=== PATIENT | male | born 1955 | race Caucasian/White ===

== ENCOUNTER → 2019-06-24 | Day surgery (SDC) | payer MEDICARE, OTHER ==
[2019-06-20 10:19] VITALS: BMI 38.0
[~2019-06-24] MED LIST: ALPRAZolam 0.25 MG TAB PO PRN; ALPRAZolam 0.5 MG TAB PO PRN; ASPIRIN 325 MG TAB PO ONE; ATORVASTATIN 80 MG TAB PO ONE; IOPAMIDOL-370 125ML BTL INJ ONE; LIDOCAINE 1% INJ 10MG/ML (20 ML MDV) SQ ONE; MIDAZOLAM 2 MG/2 ML VIAL IV ONE; NITROGLYCERIN SL TABS 0.4 MG TAB SUBLINGUAL PRN; RX INFO: IV CONTRAST WAS GIVEN 1 EACH MISC MISCELLANE PRN; SODIUM CHLORIDE 0.9% 1,000 ML IV SCH; SODIUM CHLORIDE 0.9% 1,000 ML in EMPTY BAG 1 BAG IV ONE; VERAPAMIL SYRINGE (5 MG/10 ML) INTRAARTER ONE; fentaNYL (PF) 50 MCG/ML 2 ML AMP IV ONE
[2019-06-24 07:11] VITALS: TEMP 98.3
--- NOTE | 2019-06-24 08:08 | P.PCN ---
Date of Procedure: 06/24/19 Operative Findings: CARDIAC CATHETERIZATION PERFORMING PHYSICIAN: Eliot Jimenez MD, RPVI PROCEDURE PERFORMED: 1. Selective right and left coronary angiogram 2. Left heart catheterization INDICATION: This is a pleasant 64-year-old gentleman with history of coronary artery disease and prior stenting of the LAD, hypertension, dyslipidemia, was experiencing symptoms of chest discomfort. He underwent myocardial perfusion imaging stress is on that reveals reversible defect. Because of that a heart catheterization was advised. COMPLICATION: None APPROACH: Right radial artery LEVEL OF SEDATION: Moderate sedation length of 16 minutes PROCEDURE DESCRIPTION: After obtaining an informed consent, the patient was brought to cardiac mechanical shop laborer. Local anesthesia was performed using lidocaine subcutaneously. The right radial artery was cannulated using InfraSearch ue, the guidewire passed easily, following that we advanced a 5-Afghan sheath dilator assembly, the wire and dilator were removed and sheath was flushed. Following that, 2 mg of verapamil along with 5000 unit heparin were given. Selective right and left coronary angiogram using a 6-Afghan JR4 and JL 3.5 catheters. Following that we did left heart catheterization using 6-Afghan pigtail catheter. The procedure was completed there was no complication. SELECTIVE CORONARY ANGIOGRAM: The right coronary artery: Is a large caliber vessel and a dominant vessel. The proximal and mid RCA are angiographically normal. The distal RCA has intermediate lesion appeared to be in the range of 50%. Left main: Is angiographically normal. Bifurcates into LCx, ramus intermedius, and left anterior descending artery The left circumflex: Is a large caliber vessel and nondominant vessel. It does have mild disease only. In the midportion gives rises into a large OM branch which appeared to be angiographically normal. The ramus intermedius: Is a large caliber vessel. Its angiographically normal. The left anterior descending artery: The proximal LAD stented and the stent is patent. The mid LAD is normal and gives rises into a diagonal branch which seems to be normal. The LAD distally appears to be angiographically normal. HEMODYNAMICS: The LVEDP was 6 mmHg without significant gradient across aortic valve. CONCLUSION: 1. Intermediate disease involving the distal RCA appeared to be in the range of 50% 2. Patent stent in the proximal LAD POSTPROCEDURE MANAGEMENT: #1 continue the current medical regimen #2 aggressive cholesterol control #3 follow-up with the patient
[2019-06-24 09:04] VITALS: RESP 16
[2019-06-24 12:28] VITALS: BP 138/67; PULSE 58
== END ==
LOC: CATHCVL 06:32
PROVIDERS: ATTEND Internal Medicine Interventional Cardiology
DX: I25.110 Atherosclerotic heart disease of native coronary artery with unstable angina pectoris (principal); I10 Essential (primary) hypertension; Z72.0 Tobacco use; E78.5 Hyperlipidemia, unspecified; E78.00 Pure hypercholesterolemia, unspecified; Z95.5 Presence of coronary angioplasty implant and graft; I73.9 Peripheral vascular disease, unspecified; Z82.49 Family history of ischemic heart disease and other diseases of the circulatory system; Z79.82 Long term (current) use of aspirin; Z79.899 Other long term (current) drug therapy
CPT/HCPCS: 93458; C1769; C1894; J2250; J2001; J3010; J1644; Q9967

== ENCOUNTER → 2021-10-14 | Outpatient (CLI) | payer MEDICARE ==
--- NOTE | 2021-10-15 07:33 | CTL ---
EXAMINATION TYPE: CT Low Dose Lung DATE OF EXAM ORDERED: 10/14/2021 HISTORY: Long-term tobacco use. Lung cancer screening CT DLP: [address] CTDI: 2.4 mGy Automated exposure control for dose reduction was used. SCREENING VISIT: Baseline COMPARISON: CTA chest March 16, 2014 TECHNIQUE: Low dose computed tomography scan was performed through the chest at 1 mm thick sections a nd reconstructed images in multiple planes at 1 mm and [address] DIAGNOSTIC QUALITY: Satisfactory FINDINGS: LUNG NODULES: Present, detailed below: Stable 3 mm calcified subpleural right lower lobe nodule axial image 170. No significant greater than 5 mm noncalcified pulmonary nodules LUNGS: COPD: Severity: [id number] Fibrosis: Severity: Mild to moderate Lymph nodes: No greater than 1 cm Other findings: None RIGHT PLEURAL SPACE: Effusion: None Calcification: None Thickening: None Pneumothorax: None LEFT PLEURAL SPACE: Effusion: None Calcification: None Thickening: None Pneumothorax: None HEART: Heart Size: Normal Coronary Calcification: Moderate Pericardial Effusion: None OTHER FINDINGS: Upper abdomen: None Bony thorax: None Supraclavicular region: None Other: None IMPRESSION: No significant noncalcified parenchymal nodules or masses. [id number] emphysematous changes scattered mild/moderate parenchymal fibrosis. CT LUNG RAD AND CT CHEST RECOMMENDATION: Lung-Rad 2 Benign Appearance or Behavior: Continue annual sc reening with LDCT in 12 months. S Modifier (other clinically significant findings): None
== END | disposition home or self-care (01) ==
LOC: RADCTMAIN 18:34
PROVIDERS: ATTEND Family Medicine
DX: Z12.2 Encounter for screening for malignant neoplasm of respiratory organs (principal); Z87.891 Personal history of nicotine dependence
CPT/HCPCS: 71271

== ENCOUNTER 2022-07-13 06:30 | Day surgery (SDC) | payer MEDICARE ==
[2022-07-08 10:47] VITALS: BMI 38.9
[2022-07-13] MEDS ORDERED: SODIUM CHLORIDE 0.9% 1,000 ML IV ONE (07:02)
[2022-07-13] MEDS ORDERED: ASPIRIN 81 MG ONE (07:03)
[2022-07-13 07:04] LABS: Glucose,Whole Blood 150 mg/dL (70-110)
[2022-07-13] MEDS ORDERED: HEPARIN SODIUM 1,000 UN/ML (10ML VL) ONE (07:44)
[2022-07-13] MEDS ORDERED: fentaNYL (PF) 50 MCG/ML 2 ML AMP IVP ONE ×2 (07:45→08:54)
[2022-07-13] MEDS ORDERED: fentaNYL (PF) 50 MCG/ML 2 ML AMP ONE (07:45)
[2022-07-13] MEDS ORDERED: MIDAZOLAM 2 MG/2 ML VIAL IVP ONE ×2 (07:45→08:50)
[2022-07-13] MEDS ORDERED: LIDOCAINE 1% INJ 10MG/ML (30 ML VIAL-PF) SQ ONE (08:39)
[2022-07-13] MEDS ORDERED: HEPARIN SODIUM 1,000 UN/ML (10ML VL) IV ONE (08:44)
[2022-07-13] MEDS ORDERED: CLOPIDOGREL 75 MG TAB PO ONE (09:05)
[2022-07-13] MEDS ORDERED: IOPAMIDOL-300 50ML BTL INJ ONE (09:05)
[2022-07-13] MEDS ORDERED: SODIUM CHLORIDE 0.9% 1,000 ML IV SCH (09:15)
--- NOTE | 2022-07-13 09:51 | P.PCN ---
Date of Procedure: 07/13/22 Operative Findings: PERCUTANEOUS CLOSURE OF FENESTRATED INTERATRIAL SEPTUM PERFORMING PHYSICIAN: Eliot Jimenez MD, VI PROCEDURE PERFORMED: 1. Successful percutaneous closure of fenestrated atrial septal defect (ASD) using 25 mm Amplatzer Occluder with an excellent results and without any residual shunt. 2. Intracardiac echocardiogram imaging. 3. Right atrial angiogram. 4. Ultrasound-guided access of the right common femoral vein 2 INDICATION: This is a 67-year-old gentleman who was diagnosed recently with fenestrated interatrial septum and evidence of right side enlargement. He was brought today to undergo percutaneous closure of the atrial septal defect APPROACH: Right common femoral vein 2 COMPLICATION: None. LEVEL OF SEDATION: Moderate with sedation length of 26 minutes. PROCEDURE DESCRIPTION: After obtaining informed consent, the patient was brought to the cardiac labor expediter. The right common femoral vein was cannulated x2 using micropuncture technique under ultrasound guidance, the micropuncture wire passed easily, then I placed two 8-Wolof sheath in the right groin. Subsequently I cannulated the left common femoral vein with the same technique and I placed an 8-Wolof sheath there as well. At that point, anticoagulation was initiated using heparin and the patient was given a bolus of 8,000 units of heparin IV with continuous ACT monitoring throughout the procedure. After that, the intracardiac echocardiogram probe was advanced through one of the venous sheath all the way to the right atrium where we did interrogate the interatrial septum and identified the patent foramen ovale which was measured about 25 mm. Subsequently, I did cross the defect using 0.035 J-wire with the backup support of multipurpose catheter. The wire was advanced all the way to the left upper pulmonary vein and subsequently the catheter was advanced over the wire to the left upper pulmonary vein. The 0.035 J-wire was pulled out and then I advanced a marcus wire. Subsequently, the multipurpose catheter was withdrawn out and the wire was left in the left upper pulmonary vein. After that, I did prep the Amplatzer PFO occluder under saline. The device was loaded into the truck unloader, which was attached to the sheath. Subsequently, I did exchange my 8-Wolof sheath into the Shuttle sheath over a 0.035 marcus wire. The sheath was advanced all the way under fluoroscopy guidance to the left atrium. Subsequently, the dilator of the sheath was withdrawn out along with the wire. After that, I did load the Amplatzer occluder under continuous saline flush to the sheath. The device was advanced all the way through the sheath were I did where I did deploy initially the left atrial occluder and then I pulled back the sheath and the left atrial occluder all the way to the interatrial septum and then I deployed the right atrial occluder after that. Before I released the device, I did interrogate the septum using ice images on multiple views. After I realized that the device was stable enough and in good position the device was released. Interrogation using ice was also performed after the device was released. By the end I did right atrial angiogram. The procedure was completed without any complication. POSTPROCEDURE MANAGEMENT: 1. Dual anti-platelet therapy. 2. An echo in 24 hours, in 1 week, in 4 weeks, as well as in 6 months.
[2022-07-13] MEDS: BACLOFEN 10 MG TAB PO SCH ×3 (12:32→22:32)
[2022-07-13] MEDS: oxyCODONE-APAP 10-325MG 1 EACH TAB PO PRN ×2 (12:32→19:52)
[2022-07-13 13:30] LABS: Glucose,Whole Blood 155 mg/dL (70-110)
[2022-07-13] MEDS ORDERED: ATORVASTATIN 80 MG TAB PO SCH (21:00)
[2022-07-14] MEDS: oxyCODONE-APAP 10-325MG 1 EACH TAB PO PRN ×2 (02:12→09:06)
[2022-07-14 07:33] LABS: Basophils # (A) 0.1 k/uL (0-0.2); Basophils % (A) 1 %; Eosinophils # (A) 0.2 k/uL (0-0.7); Eosinophils % (A) 2 %; HCT 42.7 % (39.0-53.0); HGB 14.3 gm/dL (13.0-17.5); Lymphocytes # (A) 2.4 k/uL (1.0-4.8); Lymphocytes % (A) 31 %; MCH 32.4 pg (25.0-35.0); MCHC 33.5 g/dL (31.0-37.0); MCV 96.6 fL (80.0-100.0); Mean Platelet Volume 8.2; Monocytes # (A) 0.6 k/uL (0-1.0); Monocytes % (A) 8 %; Neutrophils # (A) 4.2 k/uL (1.3-7.7); Neutrophils % (A) 55 %; Platelet Count 222 k/uL (150-450); RBC 4.42 m/uL (4.30-5.90); RDW 12.9 % (11.5-15.5); WBC 7.6 k/uL (3.8-10.6)
--- NOTE | 2022-07-14 07:39 | XR ---
EXAMINATION TYPE: XR chest 2V DATE OF EXAM: 07/14/2022 COMPARISON: 03/16/2014 INDICATION: ASD PFO placement TECHNIQUE: Frontal and lateral views of the chest are obtained. FINDINGS: The heart size is normal. The pulmonary vasculature is normal. The lungs are clear. On the lateral projection there is hyperinflation flattening the diaphragms. Co nsider COPD. The lateral projection there are radiopaque markers which appear to overlie the ventricle of the hear t is identified in the AP projection. IMPRESSION: 1. No acute pulmonary process. 2. COPD.
[2022-07-14 07:46] LABS: Potassium 4.9 mmol/L (3.5-5.1)
[2022-07-14 08:15] VITALS: BP 144/82; PULSE 64; RESP 20; TEMP 98.1
[2022-07-14] MEDS ORDERED: FAMOTIDINE 20 MG TAB PO SCH (09:00)
[2022-07-14] MEDS ORDERED: ESCITALOPRAM 10 MG TAB PO SCH (09:00)
[2022-07-14] MEDS ORDERED: hydroCHLOROthiazide 12.5 MG CAP PO SCH (09:00)
[2022-07-14] MEDS ORDERED: ASPIRIN 325 MG TAB PO SCH (09:00)
[2022-07-14] MEDS ORDERED: DILTIAZEM CD 180 MG CAP.ER.24H PO SCH (09:00)
[2022-07-14] MEDS ORDERED: ASPIRIN 81 MG PO SCH (09:00)
[2022-07-14] MEDS ORDERED: CHOLECALCIFEROL 25 MCG (1000 IU) TABLET PO SCH (09:00)
[2022-07-14] MEDS ORDERED: CLOPIDOGREL 75 MG TAB PO SCH (09:00)
[2022-07-14] MEDS: BACLOFEN 10 MG TAB PO SCH (09:05)
--- NOTE | 2022-07-14 11:57 | CA ---
Transthoracic Echo Report Name: Gen Nicole Age: 67 Gender: M : 1955 Exam Date: 07/14/2022 07:38 Exam Location: [facility] Ht (in): 68.5 Wt (lb): 266 Ordering Physician: Eliot Jimenez MD ([id number]) Attending/Referring Phys: Software Engineering Specialist Julieta Tidwell RDCS Procedure CPT: Indications: Post ASD/PFO Insertion Cardiac Hx: Technical Quality: Fair Contrast 1: Total Dose (mL): Contrast 2: Total Dose (mL): MEASUREMENTS (Male / Female) Normal Values 2D ECHO LV Diastolic Diameter PLAX 4.7 cm 4.2 - 5.9 / 3.9 - 5.3 cm LV Systolic Diameter PLAX 2.9 cm IVS Diastolic Thickness 1.3 cm 0.6 - 1.0 / 0.6 - 0.9 cm LVPW Diastolic Thickness 1.2 cm 0.6 - 1.0 / 0.6 - 0.9 cm LV Relative Wall Thickness 0.5 RV Internal Dim ED PLAX 3.3 cm LA Systolic Diameter LX 4.1 cm 3.0 - 4.0 / 2.7 - 3.8 cm LA Volume 67.0 cm??? 18 - 58 / 22 - 52 cm??? M-MODE Aortic Root Diameter MM 3.3 cm MV E Point Septal Separation 0.6 cm AV Cusp Separation MM 2.3 cm DOPPLER AV Peak Velocity 199.4 cm/s AV Peak Gradient 15.9 mmHg AV Mean Velocity 136.7 cm/s AV Mean Gradient 8.5 mmHg AV Velocity Time Integral 44.8 cm LVOT Peak Velocity 150.9 cm/s LVOT Peak Gradient 9.1 mmHg MV Area PHT 2.8 cm??? Mitral E Point Velocity 109.3 cm/s Mitral A Point Velocity 113.2 cm/s Mitral E to A Ratio 1.0 MV Deceleration Time 275.8 ms MV E' Velocity 7.6 cm/s Mitral E to MV E' Ratio 14.4 TR Peak Velocity 248.9 cm/s TR Peak Gradient 24.8 mmHg Right Ventricular Systolic Press 29.8 mmHg FINDINGS Left Ventricle Left ventricular ejection fraction is estimated at 60-65 %. Left ventricular cavity size normal. Mildly increased septal wall thickness. Right Ventricle Right ventricular dilatation. Right ventricular systolic pressure within normal limits. Right Atrium Normal right atrial size. Negative agitated saline bubble study for right to left shunt. Closing device on atrial leval noted Left Atrium Mildly increased left atrial volume. No evidence for an atrial septal defect. Mitral Valve Structurally normal mitral valve. No mitral stenosis, regurgitation or prolapse. Aortic Valve Trileaflet aortic valve. No aortic stenosis. There is a gradient across AOV max 16 and mean 9 mmHg Tricuspid Valve Mild tricuspid regurgitation. Pulmonic Valve Trace pulmonic regurgitation. Pericardium Normal pericardium. No pericardial effusion. Aorta Normal size aortic root and proximal ascending aorta. CONCLUSIONS Normal biventricular dimension and systolic function Stable atrial septal occluder device Previewed by: Dr. Eliot Jimenez MD (Electronically Signed) Final Date: 14 July 2022 11:56
--- NOTE | 2022-07-14 21:00 | P.DS ---
Providers Attending physician: Eliot Jimenez Primary care physician: [facility] Course: The patient is a pleasant 67-year-old gentleman who was admitted to the hospital yesterday and underwent successful percutaneous closure of fenestrated interatrial septum. He was seen this morning. He would like to go home and has been very agitated and given in nurse's hard time. The right groin is soft and nontender with no bruises. I did review his echo done that showed stable interatrial device with no residual shunt. He remains asymptomatic. He remains hemodynamically stable He can be discharged home on dual antiplatelet therapy and I will follow-up with the patient in a week in the office Plan - Discharge Summary Discharge Rx Participant: No New Discharge Prescriptions: New Clopidogrel [Plavix] 75 mg PO DAILY #90 tablet Continue Atorvastatin [Lipitor] 80 mg PO HS #30 tab Aspirin [Adult Low Dose Aspirin EC] 81 mg PO DAILY Famotidine 40 mg PO DAILY dilTIAZem HCL [dilTIAZem HCL 24Hr ER] 360 mg PO QAM Cholecalciferol [Vitamin D3 (25 Mcg = 1000 Iu)] 50 mcg PO DAILY Baclofen 10 mg PO TID hydroCHLOROthiazide [Hydrodiuril] 12.5 mg PO QAM Escitalopram [Lexapro] 10 mg PO QAM oxyCODONE-APAP 10-325MG [Percocet 10-325 mg] 1 tab PO Q4-6H PRN PRN Reason: Pain Discontinued metFORMIN HCL 500 mg PO BID Discharge Medication List Atorvastatin [Lipitor] 80 mg PO HS #30 tab 03/18/14 [Rx] Aspirin [Adult Low Dose Aspirin EC] 81 mg PO DAILY 06/20/19 [History] Famotidine 40 mg PO DAILY 06/20/19 [History] Cholecalciferol [Vitamin D3 (25 Mcg = 1000 Iu)] 50 mcg PO DAILY 04/20/22 [History] Escitalopram [Lexapro] 10 mg PO QAM 04/20/22 [History] dilTIAZem HCL [dilTIAZem HCL 24Hr ER] 360 mg PO QAM 04/20/22 [History] hydroCHLOROthiazide [Hydrodiuril] 12.5 mg PO QAM 04/20/22 [History] Baclofen 10 mg PO TID 07/08/22 [History] oxyCODONE-APAP 10-325MG [Percocet 10-325 mg] 1 tab PO Q4-6H PRN 07/08/22 [His tory] Clopidogrel [Plavix] 75 mg PO DAILY #90 tablet 07/14/22 [Rx] Follow up Appointment(s)/Referral(s): Eliot Jimenez MD [STAFF PHYSICIAN] - 1 Week (The office will call you to schedule appointments time and dates. Spoke with DJ at desk. ECHO 1 week- 4 week- 6 month- ) Patient Instructions/Handouts: Atrial Septal Defect Repair (DC), Patent Foramen Ovale (DC) Discharge Disposition: HOME SELF-CARE
== END 2022-07-14 13:13 | disposition home or self-care (01) ==
LOC: CATHCVL 06:30 → 3SCARD 09:04 → CATHCVL 07-14 13:13
PROVIDERS: ATTEND Internal Medicine Interventional Cardiology
DX: Q21.10 Atrial septal defect, unspecified (principal); I25.10 Atherosclerotic heart disease of native coronary artery without angina pectoris; I10 Essential (primary) hypertension; E78.5 Hyperlipidemia, unspecified; I71.40 Abdominal aortic aneurysm, without rupture, unspecified
CPT/HCPCS: 93306; 92978; 93580; 86900; 86901; 80048; 85025; 86850; 71046; C1769 ×3; C1894; C1817; C1760; C1759; J2250; J0690; J2001; J3010; J1644; Q9967

== ENCOUNTER 2022-09-02 07:05 | Day surgery (SDC) | payer MEDICARE ==
[2022-09-01 08:27] VITALS: BMI 38.4
[2022-09-02 07:26] VITALS: RESP 18; TEMP 98.4
[2022-09-02] MEDS ORDERED: SODIUM CHLORIDE 0.9% 500 ML 500 ML IV ONE (07:26)
[2022-09-02 07:27] LABS: Glucose,Whole Blood 165 mg/dL (70-110)
[2022-09-02] MEDS ORDERED: fentaNYL (PF) 50 MCG/ML 2 ML AMP ONE (07:41)
[2022-09-02] MEDS ORDERED: BENZOCAINE SPRAY 1 CAN MUCOUS MEM ONE (07:47)
[2022-09-02] MEDS ORDERED: fentaNYL (PF) 50 MCG/ML 2 ML AMP IV ONE (07:55)
[2022-09-02] MEDS ORDERED: MIDAZOLAM 2 MG/2 ML VIAL IV ONE ×3 (07:55→08:01)
[2022-09-02 09:29] VITALS: BP 108/63; PULSE 56
--- NOTE | 2022-09-02 09:30 | P.PCN ---
Date of Procedure: 09/02/22 Operative Findings: TRANSESOPHAGEAL ECHOCARDIOGRAM AGRICULTURAL AGENT: NICOLE MO MD, RPVI INDICATION: This is a 67-year-old gentleman who was diagnosis and he was fenestrated interatrial septum and underwent transesophageal echocardiogram and subsequently underwent successful percutaneous closure of fenestrated interatrial septum using Amplatzer device with a good results. He was seen in the office for an echo which revealed possible residual flow across the interatrial septum. SEDATION: Conscious sedation COMPLICATION: None LEVEL OF SEDATION Moderate sedation length of 15 minutes PROCEDURE DESCRIPTION: After obtaining an informed consent, the patient was brought to transesophageal echocardiogram room. Pulse oximetry and heart monitors were attached to the patient. The patient throat was sprayed using lidocaine. The patient was turned into left lateral position. After that a bite guard was placed. After an appropriate conscious sedation was initiated, the transesophageal echocardiogram was advanced through a bite guard into the mid esophagus. A 2-D echocardiogram images, color Doppler images, continuous wave images, pulse-wave images, of various cardiac structure were performed. After that the transesophageal echocardiogram probe was advanced into the stomach and fixed to obtain transgastric view was. The probe was brought into the mid esophagus. Inter-atrial septum was interrogated using 2D images, color Doppler images, and then contrast study. After that transesophageal echocardiogram was withdrawn out and upon withdrawing the descending thoracic aorta all the way up to the arch was evaluated. FINDING: The left ventricular dimension and systolic function appeared to be within normal limits ejection fraction appears to be in the range of 50-55%. The right ventricle appeared to be of normal size and function. Left atrium appears to be mildly dilated. The left atrial appendage appeared to be free from any thrombus. The interatrial septum was identified with evidence of stable Amplatzer device and evidence of residual shunt predominantly [id number] coming in between the two occluder's. The aortic valve is trileaflet valve with no stenosis and mild insufficiency. The mitral valve seems to be normal with mild MR only. Normal tricuspid valve and pulmonic valve. No evidence of pericardial effusion identified. CONCLUSION: 1. Stable interatrial Amplatzer device with evidence of residual shunt predominantly [id number] in between the right and left occluder's. 2. Normal left ventricular dimension and systolic function 3. Normal right ventricular dimension and systolic function 4. Normal intracardiac valves 5. No evidence of pericardial effusion
== END 2022-09-02 09:43 | disposition home or self-care (01) ==
LOC: CATHCVL 07:05
PROVIDERS: ATTEND Internal Medicine Interventional Cardiology
DX: I25.10 Atherosclerotic heart disease of native coronary artery without angina pectoris (principal)
CPT/HCPCS: 93312; 93320; 93325; J2250; J3010

== ENCOUNTER → 2023-07-25 | Outpatient (CLI) | payer MEDICARE ==
--- NOTE | 2023-07-28 09:05 | MR ---
EXAMINATION TYPE: MR cspine/lspine wo con DATE OF EXAM: 07/25/2023 9:43 PM CLINICAL INDICATION:Male, 68 years old with history of M54.12; PHH, Neck pain that radiates into both shoulders, low back pain that radiates down legs COMPARISON: None TECHNIQUE: Multi planar, multi sequence imaging was performed utilizing: T1-weighted, T2-weighted, a nd turbo inversion recovery imaging of the cervical and lumbar spine. MR contrast: IV Contrast: None. FINDINGS: CERVICAL: Alignment: The cervical vertebral bodies have preserved heights. Alignment is within normal limits gi jesus manuel patient positioning. Bones: Scattered Modic endplate changes with osteophytes and disc space narrowing. Multilevel degener ative disc disease is noted and most pronounced at the C5-C7 vertebral levels. Cord: The spinal cord is unremarkable with regards to their signal intensity and morphology. Discs: Multilevel disc desiccation is present. C2-C3: No significant disc pathology. The spinal canal is patent. Bilateral facet and uncovertebral joint arthropathy are present with moderate to severe right and mild left neural foraminal stenosis. C3-C4: No significant disc pathology. The spinal canal is patent. Bilateral facet and uncovertebral joint arthropathy are present with moderate left and mild to moderate right neural foraminal stenosis . C4-C5: A disc osteophyte complex is present with mild to moderate spinal canal stenosis. Bilateral f acet and uncovertebral joint arthropathy are present with moderate to severe bilateral neural foramin al stenosis. C5-C6: A disc osteophyte complex is present with mild to moderate spinal canal stenosis. Bilateral f acet and uncovertebral joint arthropathy are present with moderate to severe bilateral neural foramin al stenosis. C6-C7: A disc osteophyte complex is present which minimally narrows the ventral subarachnoid space. Bilateral facet and uncovertebral joint arthropathy are present with severe left and mild to moderat e right neural foraminal stenosis. C7-T1: No significant disc pathology. The spinal canal is patent. No neural foraminal stenosis. Other: None. LUMBAR: Alignment: The lumbar vertebral bodies have preserved heights with grade 1 anterolisthesis of L5 on S 1. Cord: The conus medullaris and the distal spinal cord appear unremarkable with regards to their signa l intensity and morphology. Bones/Discs: Minimal disc degeneration changes worse at L5-S1 with disc space narrowing, and osteophy karlos. Multilevel disc desiccation is present. T12-L1: No evidence of significant spinal canal stenosis or neural foraminal stenosis. L1-L2: No evidence of significant spinal canal stenosis or neural foraminal stenosis. L2-L3: Disc bulge and facet joint arthropathy result in mild spinal canal and moderate bilateral neur al foraminal stenosis. L3-L4: Right central osteophyte Disc bulge and facet joint arthropathy result in mild spinal canal an d moderate to severe bilateral neural foraminal stenosis. L4-L5: Disc bulge and facet joint arthropathy result in mild spinal canal and severe bilateral neural foraminal stenosis. L5-S1: Disc uncovering from grade 1 anterolisthesis and facet joint arthropathy with mild spinal nikki l stenosis and severe right and moderate severe left bilateral neural foraminal stenosis. No significant spinal canal or neural foraminal stenosis in the remainder of the visualized levels. Other findings: None. IMPRESSION: 1. No definitive evidence of disc herniation or significant spinal canal stenosis. 2. Grade 1 anterolisthesis of bowel 5 on S1. This results in severe right and moderate severe left n eural foraminal stenosis. 3. Disc degeneration with associated osteoarthritic changes. With severe bilateral neural foraminal s tenosis at L4-L5 and moderate to severe at L3-L4.
== END | disposition home or self-care (01) ==
LOC: RADMRIMAIN 20:44
PROVIDERS: ATTEND Anesthesiology
DX: M43.17 Spondylolisthesis, lumbosacral region (principal); M99.73 Connective tissue and disc stenosis of intervertebral foramina of lumbar region; M51.16 Intervertebral disc disorders with radiculopathy, lumbar region; M50.121 Cervical disc disorder at C4-C5 level with radiculopathy; M99.71 Connective tissue and disc stenosis of intervertebral foramina of cervical region
CPT/HCPCS: 72141; 72148

== ENCOUNTER 2024-03-05 16:45 | Emergency (ER) | payer MEDICARE ==
--- NOTE | 2024-03-05 16:55 | ED ---
Male Urogenital HPI - General Source: patient, RN notes reviewed Mode of arrival: wheelchair Limitations: no limitations <Marleni Strickland - Last Filed: 03/05/24 19:07> <Kevon Polo - Last Filed: 03/05/24 20:38> - General Chief complaint: Urogenital Stated complaint: back pain Time Seen by Provider: 03/05/24 16:55 - History of Present Illness Initial comments: This is a 5-year-old male presents emergency department chief complaint of right flank pain with radiation to his right lower abdomen that is worsened since this morning. Patient states that he has been experiencing intermittent colicky renal pain over the past month. He denies dysuria, hematuria, increase in frequency or urgency. Denies fevers, chills, diarrhea, constipation, chest pain or pressure, palpitations, dizziness, lightheadedness. Patient has a history of kidney stones. Denies previous surgeries on his abdomen or previous surgeries including lithotripsy or nephrostomy tube placement. (Marleni Strickland) - Related Data Home Medications Medication Instructions Recorded Confirmed Aspirin [Adult Low Dose Aspirin EC] 81 mg PO DAILY 06/20/19 03/05/24 Famotidine 40 mg PO DAILY 06/20/19 03/05/24 Escitalopram [Lexapro] 10 mg PO DAILY 04/20/22 03/05/24 Baclofen 10 mg PO TID 07/08/22 03/05/24 oxyCODONE-APAP 10-325MG [Percocet 1 tab PO 5XD 07/08/22 03/05/24 10-325 mg] Mv-Min/Folic/K1/Lycopen/Lutein 1 tab PO DAILY 09/01/22 03/05/24 [Centrum Silver Men Tablet] Cholecalciferol (Vitamin D3) 50 mcg PO DAILY 03/05/24 03/05/24 [Vitamin D3 (50 Mcg = 2000 Iu)] [place]-3 Acid Ethyl Esters [Lovaza] 1 gm PO TID 03/05/24 03/05/24 Pioglitazone [Actos] 15 mg PO DAILY 03/05/24 03/05/24 dilTIAZem HCL [Cardizem CD] 360 mg PO DAILY 03/05/24 03/05/24 hydroCHLOROthiazide [Hydrodiuril] 25 mg PO DAILY 03/05/24 03/05/24 metFORMIN HCL ER [Glucophage XR] 500 mg PO BID 03/05/24 03/05/24 Previous Rx's Medication Instructions Recorded Atorvastatin [Lipitor] 80 mg PO HS #30 tab 03/18/14 HYDROcodone/APAP 5-325MG [[place] 5] 1 each PO Q6HR PRN #12 tab 03/05/24 Ondansetron Odt [Zofran Odt] 4 mg PO Q8HR PRN #10 tab 03/05/24 Tamsulosin [Flomax] 0.4 mg PO DAILY #7 cap 03/05/24 Allergies Allergy/AdvReac Type Severity Reaction Status Date / Time No Known Allergies Allergy Verified 03/05/24 18:57 Review of Systems ROS Other: All systems not noted in ROS Statement are negative. <Marleni Strickland - Last Filed: 03/05/24 19:07> ROS Other: All systems not noted in ROS Statement are negative. <Kevon Polo - Last Filed: 03/05/24 20:38> ROS Statement: Those systems with pertinent positive or pertinent negative responses have been documented in the HPI. Past Medical History Past Medical History: Coronary Artery Disease (CAD), Chest Pain / Angina, Diabetes Mellitus, GERD/Reflux, Hyperlipidemia, Hypertension, Myocardial Infarction ([place]), Sleep Apnea/CPAP/BIPAP Additional Past Medical History / Comment(s): hx migraines, sleep apnea (no machine)., kidney stones, hemorrhoids, back pain -herniated discs with spurs., urgency for urination since prostate surgery. See [facility] Last Myocardial Infarction Date:: 2013 History of Any Multi-Drug Resistant Organisms: None Reported Past Surgical History: Heart Catheterization, Heart Catheterization With Stent, Orthopedic Surgery, Prostate Surgery Additional Past Surgical History / Comment(s): Heart Cath with Stent (2013), septoplasty, "roter router prostate surgery"., [place] knee arthroscopy. , percutaneous closure of Atrial Septal Defect (07/13/22) Past Anesthesia/Blood Transfusion Reactions: No Reported Reaction Date of Last Stent Placement:: 03/2014 Past Psychological History: Depression Smoking Status: Current every day smoker Past Alcohol Use History: None Reported Past Drug Use History: None Reported - Past Family History Sister(s) Family Medical History: Cancer, Deep Vein Thrombosis (DVT), Pulmonary Embolus Father Family Medical History: Cancer <Marleni Strickland - Last Filed: 03/05/24 19:07> General Exam Limitations: no limitations General appearance: alert, in no apparent distress Head exam: Present: atraumatic, normocephalic, normal inspection Eye exam: Present: normal appearance, PERRL, EOMI. Absent: scleral icterus, conjunctival injection, periorbital swelling ENT exam: Present: normal exam, mucous membranes moist Neck exam: Present: normal inspection. Absent: tenderness, meningismus, lymphadenopathy Respiratory exam: Present: normal lung sounds bilaterally. Absent: respiratory distress, wheezes, rales, rhonchi, stridor Cardiovascular Exam: Present: regular rate, normal rhythm, normal heart sounds. Absent: systolic murmur, diastolic murmur, rubs, gallop, clicks GI/Abdominal exam: Present: soft, tenderness (RLQ/pelvic), normal bowel sounds. Absent: guarding, rebound, rigid Extremities exam: Present: normal inspection, full ROM, normal capillary refill. Absent: tenderness, pedal edema, joint swelling, calf tenderness Back exam: Present: normal inspection, CVA tenderness (R) Neurological exam: Present: alert, oriented X3, CN II-XII intact Psychiatric exam: Present: normal affect, normal mood <Marleni Strickland - Last Filed: 03/05/24 19:07> Course Vital Signs 03/05/24 03/05/24 16:50 18:48 Temperature 97.9 F Pulse Rate 83 84 Respiratory 18 19 Rate Blood Pressure 181/83 169/79 O2 Sat by Pulse 95 94 L Oximetry Medical Decision Making - Lab Data Result diagrams: 03/05/24 17:20 03/05/24 17:20 <EmMarleni - Last Filed: 03/05/24 19:07> - Lab Data Result diagrams: 03/05/24 17:20 03/05/24 17:20 <Kevon Polo - Last Filed: 03/05/24 20:38> - Medical Decision Making Was pt. sent in by a medical professional or institution (, PA, ARCHITECTURAL PROJECT CAPTAIN, urgent care, hospital, or [facility]...) When possible be specific @ -[No] Did you speak to anyone other than the patient for history (EMS, parent, family, police, friend...)? What history was obtained from this source @ -[No] Did you review nursing and triage notes (agree or disagree)? Why? @ -[I reviewed and agree with nursing and triage notes] Were old charts reviewed (outside hosp., previous admission, EMS record, old EKG, old radiological studies, urgent care reports/EKG's, [facility] records)? Report findings @ -[No old charts were reviewed] Differential Diagnosis (chest pain, altered mental status, abdominal pain women, abdominal pain men, vaginal bleeding, weakness, fever, dyspnea, syncope, headache, dizziness, GI bleed, back pain, seizure, CVA, palpatations, mental health, musculoskeletal)? @ -Differential Abdominal Pain Men: Appendicitis, cholecystitis, diverticulosis, ischemic bowel, pancreatitis, hepatitis, UTI, gastroenteritis, AAA, incarcerated hernia, bowel obstruction, constipation, inflammatory bowel, hepatitis, peptic ulcer disease, splenic in farction, perforated viscus, testicular torsion, this is not meant to be an all- inclusive list EKG interpreted by me (3pts min.). @ -none X-rays interpreted by me (1pt min.). @ -[None done] CT interpreted by me (1pt min.). @ -[None done] U/S interpreted by me (1pt. min.). @ -[None done] What testing was considered but not performed or refused? (CT, X-rays, U/S, labs)? Why? @ -[None] What meds were considered but not given or refused? Why? @ -[None] Did you discuss the management of the patient with other professionals (professionals i.e. , PA, ARCHITECTURAL PROJECT CAPTAIN, lab, RT, psych nurse, social services coordinator, railroad commissioner, teacher, chief innovation officer, pillowcase cutter)? Give summary @ -[No] Was smoking cessation discussed for >3mins.? @ -[No] Was critical care preformed (if so, how long)? @ -[No] Were there social determinants of health that impacted care today? How? (Homelessness, low income, unemployed, alcoholism, drug addiction, transportation, low edu. Level, literacy, decrease access to med. care, half-way, rehab)? @ -[No] Was there de-escalation of care discussed even if they declined (Discuss DNR or withdrawal of care, Hospice)? DNR status @ -[No] What co-morbidities impacted this encounter? (DM, HTN, Smoking, COPD, CAD, Cancer, CVA, ARF, Chemo, Hep., AIDS, mental health diagnosis, sleep apnea, morbid obesity)? @ -[None] Was patient admitted / discharged? Hospital course, mention meds given and route, prescriptions, significant lab abnormalities, going to OR and other pertinent info. @ 68-year-old male with right flank and right lower abdominal pain. Abdominal exam reveals tenderness to right lower quadrant and flank with no signs of rebound or rigidity. Patient will be evaluated via laboratory studies including urinalysis and CT of the abdomen pelvis for likelihood of nephrolithiasis. He is also symptomatically treated with fluids and pain medication. on re- evaluation, patient states that his pain has slightly improved but is still present therefore he is provided with additional pain medication. Including CBC and CMP unremarkable. Urinalysis remarkable for a light red color, large blood and greater than 182 red blood cells. Undiagnosed new problem with uncertain prognosis? @ -[No] Drug Therapy requiring intensive monitoring for toxicity (Heparin, Nitro, Insulin, Cardizem)? @ -[No] Were any procedures done? @ -[No] Diagnosis/symptom? @ -[default] Acute, or Chronic, or Acute on Chronic? @ -[default] Uncomplicated (without systemic symptoms) or Complicated (systemic symptoms)? @ -[default] Side effects of treatment? @ -[No] Exacerbation, Progression, or Severe Exacerbation? @ -[No] Poses a threat to life or bodily function? How? (Chest pain, [place], [place], pneumonia, PE, COPD, DKA, ARF, appy, cholecystitis, CVA, Diverticulitis, Homicidal, Suicidal, threat to staff... and all critical care pts) @ -[No] (Dennysr,Marleni) Discharge 68-year-old male signed out to me pending results of imaging studies. In short, 68-year-old male presenting to the ED with complaints of acute left flank pain radiating to his abdomen onset today. Laboratory studies reviewed. Labs including CBC CMP unremarkable. Urine shows large blood with greater than 182 red blood cells with no evidence of infection. CT scan did show a 4 mm stone at the left ureteral orifice with mild to moderate obstructive uropathy with moderate perinephric edema on the left, likely reactive. Also incidental finding of infrarenal AAA measuring 4.1 cm. At this time, pain well-controlled. Discharged home with prescriptions for [place], Flomax, Zofran and the urinary strainer with a referral to see urology. In regards to incidental infrarenal AAA, patient asymptomatic at this time and provided referral to see vascular. Advise close follow-up with his PCP, urology, and vascular surgery. Discussed return precautions with patient and family who verbalized agreement. (Kevon Polo) - Lab Data Lab Results 03/05/24 03/05/24 03/05/24 Range/Units 17:20 17:20 17:20 WBC 10.0 (3.8-10.6) k/uL RBC 4.54 (4.30-5.90) m/uL Hgb 14.5 (13.0-17.5) gm/dL Hct 44.9 (39.0-53.0) % MCV 98.9 (80.0-100.0) fL MCH 31.9 (25.0-35.0) pg MCHC 32.3 (31.0-37.0) g/dL RDW 13.2 (11.5-15.5) % Plt Count 273 (150-450) k/uL MPV 7.5 Neutrophils % 74 % Lymphocytes % 16 % Monocytes % 6 % Eosinophils % 2 % Basophils % 0 % Neutrophils # 7.4 (1.3-7.7) k/uL Lymphocytes # 1.6 (1.0-4.8) k/uL Monocytes # 0.6 (0-1.0) k/uL Eosinophils # 0.2 (0-0.7) k/uL Basophils # 0.0 (0-0.2) k/uL Sodium 139 (137-145) mmol/L Potassium 4.2 (3.5-5.1) mmol/L Chloride 104 (98-107) mmol/L Carbon Dioxide 27 (22-30) mmol/L Anion Gap 8 mmol/L BUN 19 (9-20) mg/dL Creatinine 1.15 (0.66-1.25) mg/dL Est GFR (CKD-EPI)AfAm 75 (>60 ml/min/1.73 sqM) Est GFR (CKD-EPI)NonAf 65 (>60 ml/min/1.73 sqM) Glucose 182 H (74-99) mg/dL Calcium 9.6 (8.4-10.2) mg/dL Total Bilirubin 0.6 (0.2-1.3) mg/dL AST 25 (17-59) U/L ALT 21 (4-49) U/L Alkaline Phosphatase 90 (38-126) U/L Total Protein 7.3 (6.3-8.2) g/dL Albumin 4.5 (3.5-5.0) g/dL Urine Color Light Red Urine Appearance Clear (Clear) Urine pH 6.0 (5.0-8.0) Ur Specific [place] 1.022 (1.001-1.035) Urine Protein 1+ H (Negative) Urine Glucose (UA) Negative (Negative) Urine Ketones Negative (Negative) Urine Blood Large H (Negative) Urine Nitrite Negative (Negative) Urine Bilirubin Negative (Negative) Urine Urobilinogen <2.0 (<2.0) mg/dL Ur Leukocyte Esterase Negative (Negative) Urine RBC >182 H (0-5) /hpf Urine WBC 1 (0-5) /hpf Urine Mucus Occasional H (None) /hpf Disposition <Marleni Strickland - Last Filed: 03/05/24 19:07> Is patient prescribed a controlled substance at d/c from ED?: No Time of Disposition: 20:38 <Kevon Polo - Last Filed: 03/05/24 20:38> Clinical Impression: Kidney stone on left side Disposition: HOME SELF-CARE Condition: Good Instructions (If sedation given, give patient instructions): Kidney Stones (ED), Nonruptured Abdominal Aortic Aneurysm (DC) Additional Instructions: Please return to the Emergency Department if symptoms worsen or any other concerns. Please follow-up with your PCP, urology, and vascular surgery. Prescriptions: Tamsulosin [Flomax] 0.4 mg PO DAILY #7 cap HYDROcodone/APAP 5-325MG [[place] 5] 1 each PO Q6HR PRN #12 tab PRN Reason: Pain Ondansetron Odt [Zofran Odt] 4 mg PO Q8HR PRN #10 tab PRN Reason: Nausea Referrals: Meme Nobles MD [Primary Care Provider] - 1-2 days Elieser Arias MD [STAFF PHYSICIAN] - 1-2 days Armando Anna MD [STAFF PHYSICIAN] - 1-2 days
[2024-03-05 17:26] LABS: Basophils % (A) 0 %; Eosinophils # (A) 0.2 k/uL (0-0.7); Eosinophils % (A) 2 %; HCT 44.9 % (39.0-53.0); HGB 14.5 gm/dL (13.0-17.5); Lymphocytes # (A) 1.6 k/uL (1.0-4.8); Lymphocytes % (A) 16 %; MCH 31.9 pg (25.0-35.0); MCHC 32.3 g/dL (31.0-37.0); MCV 98.9 fL (80.0-100.0); Mean Platelet Volume 7.5; Monocytes # (A) 0.6 k/uL (0-1.0); Monocytes % (A) 6 %; Neutrophils # (A) 7.4 k/uL (1.3-7.7); Neutrophils % (A) 74 %; Platelet Count 273 k/uL (150-450); RBC 4.54 m/uL (4.30-5.90); RDW 13.2 % (11.5-15.5)
[2024-03-05] MEDS: ONDANSETRON 4 MG/2 ML VIAL IVP STA (17:37)
[2024-03-05] MEDS: HYDROmorphone 1 MG/ML 1 ML SYRINGE IVP STA (17:38)
[2024-03-05 17:39] LABS: ALT 21 U/L (4-49); AST 25 U/L (17-59); African American GFR (CKD) 75 (>60 ml/min/1.73 sqM); Albumin 4.5 g/dL (3.5-5.0); Alkaline Phosphatase 90 U/L (38-126); Anion Gap 8 mmol/L; Blood Urea Nitrogen 19 mg/dL (9-20); Calcium 9.6 mg/dL (8.4-10.2); Carbon Dioxide 27 mmol/L (22-30); Chloride 104 mmol/L (98-107); Glucose 182 mg/dL (74-99); Non-African American GFR(CKD) 65 (>60 ml/min/1.73 sqM); Potassium 4.2 mmol/L (3.5-5.1); Sodium 139 mmol/L (137-145); Total Bilirubin 0.6 mg/dL (0.2-1.3); Total Protein 7.3 g/dL (6.3-8.2)
[2024-03-05 18:01] LABS: Appearance,Urine Clear (Clear); Bilirubin,Urine Negative (Negative); Blood,Urine Large (Negative); Color,Urine Light Red; Glucose,Urine (UA) Negative (Negative); Ketones,Urine Negative (Negative); Leukocyte Esterase,Urine Negative (Negative); Mucus,Urine Occasional /hpf; Nitrite,Urine Negative (Negative); Protein,Urine 1+ (Negative); RBC,Urine >182 /hpf (0-5); Specific Gravity,Urine 1.022 (1.001-1.035); Urobilinogen,Urine <2.0 mg/dL (<2.0); WBC,Urine 1 /hpf (0-5)
[2024-03-05] MEDS: MORPHINE SULFATE 4 MG/ML SYRINGE IVP STA (18:44)
[2024-03-05] MEDS: METOCLOPRAMIDE 5 MG/ML 2 ML VIAL IVP STA (19:53)
--- NOTE | 2024-03-05 19:53 | CT ---
EXAMINATION TYPE: CT abdomen pelvis wo con DATE OF EXAM: 03/05/2024 COMPARISON: None HISTORY: 68-year-old male abd pain, flank pain. Hx kidney stones CT DLP: 1710 mGycm. Automated exposure control for dose reduction was used. TECHNIQUE: Contiguous axial scanning of the abdomen and pelvis without IV contrast. Coronal and sagit priscilla reconstructions performed. FINDINGS: Heart normal size without pericardial effusion. PFO closure device noted. Strandy atelectasis in the lower lungs without pleural effusion. Liver enlarged at 21.3 cm. Noncontrast appearance of the gallbladder, adrenal glands, spleen, and pancreas show no gross abnorma lity. Punctate 2 mm nonobstructive right renal calculus. There is a 6 mm nonobstructive stone left kidney with mild to moderate left hydronephrosis and modera te perinephric edema. 4 mm stone located at the left ureteral orifice. Tiny fatty umbilical hernia. No dilated small bowel, free fluid, or free air. No mesenteric or retroperitoneal lymphadenopathy. No significant stool burden. Left sided colonic diverticulosis without pericolonic inflammatory caceres e. There is fusiform infrarenal abdominal aortic aneurysm up to 4.1 cm. Prostate gland mildly enlarged at 4.1 cm wide. Left-sided pelvic phleboliths. No abnormal fluid colle ction in the pelvis or pelvic lymphadenopathy. Bones: Hypertrophic facet arthropathy. Moderate to advanced degenerative disc disease mid to lower madhavi mbar spine. Degenerative grade 1 spondylolisthesis L3-S1 levels. IMPRESSION: 1. A 4 mm stone at the left ureteral orifice with mild to moderate obstructive uropathy. Moderate pe rinephric edema on the left may be reactive to the obstruction. Correlate to exclude superimposed inf ection. 2. Abdominal nonobstructive renal calculi measuring up to 6 mm. 3. Infrarenal AAA measuring 4.1 cm. Consider outpatient vascular surgery referral for appropriate srivastava rveillance/management. 4. Hepatomegaly at 21.3 cm. Left-sided colonic diverticulosis.
[2024-03-05] MEDS: ACETAMINOPHEN TAB 500 MG TAB PO STA (19:54)
[2024-03-05] MEDS: KETOROLAC 15 MG/ML 1 ML VIAL IVP STA (19:54)
[2024-03-05] MEDS: ACET/COD 300 MG/30 MG STARTER PACK 6 TAB BTL PO STA (21:06)
[2024-03-05] MEDS: HYDROmorphone 0.5 MG/0.5 ML SYRINGE IVP STA (21:06)
[2024-03-05] MEDS: ONDANSETRON 4 MG ODT STARTER PACK 2 TAB BTL PO STA (21:06)
[2024-03-05 21:32] VITALS: BP 145/74; PULSE 87; RESP 16; TEMP 98
== END 2024-03-05 21:10 | disposition home or self-care (01) ==
LOC: SUPCPDRO 16:45 → EC 16:45
DX: N13.9 Obstructive and reflux uropathy, unspecified (principal); N20.2 Calculus of kidney with calculus of ureter; F17.200 Nicotine dependence, unspecified, uncomplicated
CPT/HCPCS: 36415; 80053; 85025; 81001; 74176; 99284; 96374; 96375 ×4; 96376; J2270; J2765; J2405; J1170 ×2; J1885; S0119

== ENCOUNTER → 2024-06-24 | Outpatient (CLI) | payer MEDICARE ==
--- NOTE | 2024-06-25 09:09 | CTL ---
EXAMINATION TYPE: CT Low Dose Lung DATE OF EXAM ORDERED: 06/24/2024 HISTORY: Nicotine dependence, current smoker, 57 pack-year history. Lung cancer screening CT DLP: [address] CTDI: 3.52 mGy Automated exposure control for dose reduction was used. SCREENING VISIT: Third screening visit COMPARISON: CT Low Dose Lung 05/24/2023, 10/14/2021, CTA chest 03/16/2014 TECHNIQUE: Low dose computed tomography scan was performed through the chest at 1 mm thick sections a nd reconstructed images in multiple planes at 1 mm and [address] DIAGNOSTIC QUALITY: Limited, but interpretable FINDINGS: LUNG NODULES: Present, detailed below: Stable 2.6 mm calcified subpleural right lower lobe nodule (series 8, image 34). Stable left lower lo be 4.7 lower pulmonary nodule (series 8, image 33). No new or enlarging pulmonary nodules. No significant greater than 5 mm noncalcified pulmonary nodules LUNGS: COPD: Severity: Cohc-ib-tipavejs Fibrosis: Severity: Mild to moderate Lymph nodes: No greater than 1 cm Other findings: None RIGHT PLEURAL SPACE: Effusion: None Calcification: None Thickening: None Pneumothorax: None LEFT PLEURAL SPACE: Effusion: None Calcification: None Thickening: None Pneumothorax: None HEART: Heart Size: Normal, atrial septal occlusion device. Coronary Calcification: Moderate Pericardial Effusion: None OTHER FINDINGS: Upper abdomen: None Bony thorax: None Supraclavicular region: None Other: None IMPRESSION: Couple of stable pulmonary nodules measuring less than 5 mm. [id number] emphysemato us changes with scattered mild/moderate parenchymal fibrosis. CT LUNG RAD AND CT CHEST RECOMMENDATION: Lung-Rad 2 Benign Appearance or Behavior: Continue annual sc reening with LDCT in 12 months. S Modifier (other clinically significant findings): None [facility], , 06/25/2024 9:07 AM
== END | disposition home or self-care (01) ==
LOC: RADCTMAIN 15:50
PROVIDERS: ATTEND Family Medicine
DX: Z12.2 Encounter for screening for malignant neoplasm of respiratory organs (principal); J43.9 Emphysema, unspecified; F17.210 Nicotine dependence, cigarettes, uncomplicated
CPT/HCPCS: 71271